=== PATIENT | male | born 1975 | race American Indian/Alaskan Native ===

== ENCOUNTER → 2017-07-19 | Emergency (ER) | payer OTHER ==
[~2017-07-19] VITALS: Ht 170.2 cm; Wt 117.9 kg
[~2017-07-19] MED LIST: CEPHALEXIN500 MG PO; CRUTCH1 EACH; CYCLOBENZAPRINE5 MG PO; IBUPROFEN600 MG PO; TRAMADOL HCL50 MG PO
== END | disposition home or self-care (01) ==
LOC: ED 17:14
DX: S86.912A Strain of unspecified muscle(s) and tendon(s) at lower leg level, left leg, initial encounter (principal); I10 Essential (primary) hypertension; W22.8XXA Striking against or struck by other objects, initial encounter; Y92.096 Garden or yard of other non-institutional residence as the place of occurrence of the external cause
CPT/HCPCS: 99283

== ENCOUNTER 2018-05-09 09:08 | Emergency (ER) | payer OTHER ==
[~2018-05-09] VITALS: Ht 170.2 cm; Wt 117.9 kg
== END 2018-05-09 09:22 | disposition home or self-care (01) ==
LOC: ED 09:08
DX: S51.812A Laceration without foreign body of left forearm, initial encounter (principal); W45.8XXA Other foreign body or object entering through skin, initial encounter; Y92.89 Other specified places as the place of occurrence of the external cause

== ENCOUNTER 2020-05-17 14:07 | Observation (INO) | payer OTHER ==
[~2020-05-17] VITALS: Ht 170.2 cm; Wt 113.8 kg
[~2020-05-17 14:07] MED LIST changes: +NORCO 5-325 TA1 EACH PO
--- NOTE | 2020-05-17 19:04 | NUR ---
1900 COVID-19 SWAB BOTH NARES, PT TOLERATED WELL. [facility].
--- NOTE | 2020-05-17 19:59 | NUR ---
PATIENT ARRIVED AT 1905, HYPERTENSIVE AND A LITTLE TACHYCARDIC. CALLING BARYTES GRINDER TO GET IV FLUIDS. PATIENT HAVING NO PAIN AND INDEPENDENT IN ROOM. INSTRUCTED ON USE OF CALL LIGHT AND HAT FOR VOIDING TO COLLET I+O. PATIENT VERBALIZED UNDERSTANDING. CALL LIGHT IN REACH.
--- NOTE | 2020-05-17 22:00 | NUR ---
PATIENT STILL SITTING UP IN BEDSIDE CHAIR AND HAS EATEN HIS HAMBURGER AND FRIES, DRANK 2 GLASSES OF WATER AND NOW HAS SOME GRAPE JUICE AND SPRITE HE IS WORKING ON IV INFUSING WNL, CALL LIGHT IN REACH. NO NEEDS AT THIS TIME.
--- NOTE | 2020-05-17 22:58 | NUR ---
PATIENT UP TO THE BATHROOM ON HIS OWN AND BACK TO BED, NO NEEDS AT THIS TIME. CALL LIGHT IN REACH.
--- NOTE | 2020-05-18 00:35 | NUR ---
PATIENT UP TO THE BATHROOM AGAIN INDEPENDENTLY AND BACK TO BED, HAS NO NEEDS AT THIS TIME. CALL LIGHT IN REACH.
--- NOTE | 2020-05-18 02:30 | NUR ---
PATIENT'S ASSESSMENT HAS IMPROVED IN THAT HIS HEART RATE AND B/P ARE DOWN. PATIENT WAS RESTING WITH EYES CLOSED WHEN WE WOKE HIM UP FOR VS. PHYSICAL ASSESSMENT IS UNCHANGED. PATIENT REMAINS INDEPENDENT IN ROOM, WATER GLASS REFILLED, PATIENT HAS VOIDED MULTIPLE TIMES IN HAT IN THE REST ROOM. IV INFUSING WNL. CALL LIGHT IN REACH.
--- NOTE | 2020-05-18 05:01 | NUR ---
PATIENT WAS TACHYCARDIC AND HYPERTENSIVE ON ARRIVAL AFTER A LOT OF PO FLUIDS AND IV FLUIDS, B/P AND HR HAVE NORMALIZED. PATIENT HAS BEEN RESTING WHEN STAFF HAS NOT BEEN IN TO CHART OR HE HAS BEEN UP TO THE BATHROOM. PATIENT HAS BEEN INDEPENDENT IN THE ROOM AND IS VOIDING WELL, IV INFUSING WNL, CALL LIGHT IN REACH.
--- NOTE | 2020-05-18 09:15 | NUR ---
PATIENT INDEPENDENT IN ROOM. WHITE BOARD UPDATED. CALL LIGHT WITHIN REACH. NO FURTHER NEEDS AT THIS TIME.
--- NOTE | 2020-05-18 11:30 | NUR ---
Spoke with Sean. He lives in an apartment alone. [facility] is his emergency contact and will pick him up from the hospital. Pt states he is having financial difficulty as he was off due to covid. He did not receive his un- employment benefits for 7 weeks of work. He is concerned about rent and paying his electric bill. Information given for [employer] and [employer]. Called and spoke with Antonio and she will assist him with OHP. Per Dr. Pandya pt will need to remain off work for a couple of days. He plans on dc to home.
--- NOTE | 2020-05-18 13:00 | NUR ---
Call from Marylin at [facility] for update. UPdate given and she will notify
--- NOTE | 2020-05-18 14:30 | EKG ---
[facility] [address] [place], [place] [address] Signed Sinus tachycardia Possible Left atrial enlargement Low voltage QRS Septal infarct (cited on or before 17-MAY-2020) Abnormal ECG When compared with ECG of 17-MAY-2020 14:21, (Unconfirmed) No significant change was found Confirmed by ANKUR SINGH MD ([id number] on 05/18/2020 2:30:05 PM Electronically Signed By: ANKUR SINGH MD 05/18/20 1430 PATIENT NAME: NÉSTOR HAN ERUM Electrocardiogram DATE OF : 77 PHYSICIAN: ANKUR SINGH MD REPORT #: [id number] REPORT IS CONFIDENTIAL AND NOT TO BE RELEASED WITHOUT AUTHORIZATION
== END 2020-05-18 11:05 | disposition home or self-care (01) ==
LOC: ED 14:07 → MS 14:10
PROVIDERS: ADMIT Internal Medicine
DX: N17.9 Acute kidney failure, unspecified (principal); E86.0 Dehydration; F17.200 Nicotine dependence, unspecified, uncomplicated
CPT/HCPCS: 36415; 80048; 80053; 81001; 82550; 82565; 83735; 84484; 84520; 85025; 93005; 93010; 96360; 96361; 96374; 96376; 99285-25; C9113; C9803; G0378; J3480; J7030; J7120

== ENCOUNTER 2020-12-20 15:45 | Emergency (ER) | payer OTHER ==
[~2020-12-20] VITALS: Ht 170.2 cm; Wt 113.9 kg
== END 2020-12-20 22:26 | disposition home or self-care (01) ==
LOC: ED 15:45
DX: R10.31 Right lower quadrant pain (principal); R19.7 Diarrhea, unspecified; I10 Essential (primary) hypertension; F17.200 Nicotine dependence, unspecified, uncomplicated
CPT/HCPCS: 74177; 80053; 81001; 83690; 83735; 85025; 96361; 96375; 99284-25; J1170; J1885; J2405; J7030; Q9967

== ENCOUNTER 2021-03-02 12:15 | Observation (INO) | payer OTHER ==
[~2021-03-02] VITALS: Ht 170.2 cm; Wt 113.8 kg
--- NOTE | 2021-03-02 16:29 | NUR ---
PT ARRIVES W/C REQUESTING TO USE BATHROOM. REPORTS TAKEN FROM RASHMI RIOS.
[2021-03-02] MEDS ORDERED: IBU-200200 MG PO (16:56)
--- NOTE | 2021-03-02 16:56 | NUR ---
MED REC COMPLETE
--- NOTE | 2021-03-02 19:11 | NUR ---
REPORT GIVEN TO DENEEN RIOS.
--- NOTE | 2021-03-02 20:01 | NUR ---
on room air, ivf infusing, no mesis, tolerating liquids, no c/o dissiness or visual changes, tachy at 118, a repositoning in bed, denies CP, it went down to 109. coop with assessment
--- NOTE | 2021-03-02 20:30 | NUR ---
CALL LIGHT ANSWERED. IV PUMP ALARMING DISTAL OCCLUSION. IVF INFUSING WNL. TEMPERATURE IN ROOM ADJUSTED. PERSONAL FAN PROVIDED. NO ADDITIONAL REQUESTS AT THIS TIME.
--- NOTE | 2021-03-03 01:49 | NUR ---
RESTING, NO DITRESS, NO FURTHER C/O H/A, TURNS SELF IN BED, IVF INFUSING
--- NOTE | 2021-03-03 04:00 | NUR ---
Awake, watching tv, no c/o n/v, IVF infusing
--- NOTE | 2021-03-03 06:37 | NUR ---
Pt has been awake off and on. On room air. IVF infusing w/o problems. Tolerating liquids well. voiding QS light celestine colored urine. Gets up to br, Was medicated earlieron shift with Tylenol per h/a, effective.no further c/o pain. uses call light, alert and oriented.
--- NOTE | 2021-03-03 07:06 | NUR ---
TOOK REPORT FROM DENEEN RIOS. PT IN ROOM WAITING FOR BREAKFAST. DENIES NEEDS AT THIS TIME.
--- NOTE | 2021-03-03 07:10 | EKG ---
[facility] [address] [place], [place] [address] Signed Sinus tachycardia Otherwise normal ECG When compared with ECG of 17-MAY-2020 14:22, Nonspecific T wave abnormality no longer evident in Lateral leads Confirmed by ANKUR SINGH MD ([id number]) on 03/03/2021 7:09:59 AM Electronically Signed By: ANKUR SINGH MD 03/03/21 0710 PATIENT NAME: NÉSTOR HAN ERUM Electrocardiogram DATE OF : 77 PHYSICIAN: ANKUR SINGH MD REPORT #: [id number] REPORT IS CONFIDENTIAL AND NOT TO BE RELEASED WITHOUT AUTHORIZATION
--- NOTE | 2021-03-03 08:12 | NUR ---
SILICON BARRIER CREAM APPLIED TO PT'S KWADWO AREA.
--- NOTE | 2021-03-03 10:28 | NUR ---
PT D/C HOME WITH EDUCATION AND PLAN TO F/U WITH PCP. DENIES NEEDS AT THIS TIME.
== END 2021-03-03 10:00 | disposition home or self-care (01) ==
LOC: ED 12:15 → MS 12:16
PROVIDERS: ADMIT Internal Medicine; ATTEND Internal Medicine
DX: N17.9 Acute kidney failure, unspecified (principal); E86.0 Dehydration; I10 Essential (primary) hypertension; F17.200 Nicotine dependence, unspecified, uncomplicated; Z20.822 Contact with and (suspected) exposure to COVID-19
CPT/HCPCS: 36415; 80048; 80053; 82550; 83690; 83735; 84484; 85025; 93005; 93010; 99285-25; C9803; G0378; J7030; J7121; U0003